=== PATIENT | female | born 1985 | race Caucasian/White ===

== ENCOUNTER 2024-04-02 12:26 | Outpatient (RCR) | payer MEDICAID, SELFPAY ==
--- NOTE | 2024-04-03 07:47 | HP.FCE ---
Task Lift Floor (Occasional 1-33% of Day): 15 Floor (Frequent 34-66% of Day): 7.5 Floor (Constant 67-100% of Day): 3.15 Floor PDL: Sedentary-Light Knee (Occasional 1-33% of Day): 15 Knee (Frequent 34-66% of Day): 7.5 Knee (Constant 67-100% of Day): 3.15 Knee PDL: Sedentary-Light Waist (Occasional 1-33% of Day): 20 Waist (Frequent 34-66% of Day): 10 Waist (Constant 67-100% of Day): 4.2 Waist PDL: Light Shoulder (Occasional 1-33% of Day): 15 Shoulder (Frequent 34-66% of Day): 7.5 Shoulder (Constant 67-100% of Day): 3.15 Shoulder PDL: Sedentary-Light Overhead (Occasional 1-33% of Day): 0 Overhead (Frequent 34-66% of Day): 0 Overhead (Constant 67-100% of Day): 0 Overhead PDL: No Ability Comments: pt functioning at sedentary light for floor, knee, as well as shoulder lift. pt functioning at light for waist lift. no ability for overhead lift. Work Activity/Posture Bending: Occasional Ability (1-33% of day) Squatting: Occasional Ability (1-33% of day) Kneeling: Occasional Ability (1-33% of day) Reaching out: Frequent Ability (34-66% of day) Reaching up: Occasional Ability (1-33% of day) Sitting: Frequent Ability (34-66% of day) Walking: Occasional Ability (1-33% of day) Standing: Occasional Ability (1-33% of day) Reference Reference: Duration Sedentary Sedentary Light Light Light Medium Medium Medium Heavy Very Heavy Heavy Occasional (0-33% of day) Frequent (34-66% of day) Constant (67-100% of day) 10 # Negligible Negligible 15 # 8 # Negligible 20 # 10# Negli. 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 Pt has undergone a bunch of PT for B ankles as well as shoulders. per pt aquatic therapy for shoulders as well. therapy for B wrist as well as back and hips. aquatic therapy for all of these as well. Pt has done massage to attempt to manage. pain management for lower back mid back and hip pain however has not been there in awhile. per pt has injections for bursa of legs and sacral region, RF on lower back reports RF helped a little bit. fibromyalgia specialist. pt does think she pulled B groin muscles back in 2006 however not formally dx. pt states recent dx of scoliosis this past month. pt reports having reactive airway disease unable to ID how long she has had it. 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 [place] is two stories 6 step landing then 6 steps. bedroom on upper level. pt has t/s combo reports she never showers by self boyfriend provides supervision no grab bars. per pt assists her with getting dressed and undressed -- pt reports she can do it if absolutely necessary however usually ends up hurting self when she attempts to. pt is able to go to bathroom on own. pt does cooking at home has boyfriend assist with carrying things too heavy or if needs stool to sit on. pt and her father do her laundry due to difficulty with carrying laundry up and down stairs. pt does have braces for ankle as well as wrist and back shoulder sling. pt reports wrist braces help the most Physical Examination Physical Examination: baseline bp taken sitting at desk before movement 110/71--- does take medication for bp issues baseline 02 and HR taken before physical movement: 02 100% HR 100 bpm pt request to sit in chair without arms changes sitting position frequently re adjustments during history intake ROM: BUE AROM WFL BLE AROM WFL reports pain in R hip with hip flexion reports pain in shoulder with shoulder flexion Strength: use of fet 2 peak force for strength numbers: Upper Extremity: L shoulder 7.9# R shoulder 9.2# L bicep 10.5# R bicep 8.2# L tricep 11.8# R tricep 11.9# L ER 10.6# R ER 10.7# Lower Extremity: L hip flexor: 14.4# R hip flexor 16# L quad 16.2# R quad 16.8# L hamstring 31.2# R hamstring 30.6# Right Electronic Scale Subassembler Strength Average: 45.00 Right Electronic Scale Subassembler Strength Percentile: 75th percentile Left Electronic Scale Subassembler Strength Average: 40.00 Left Electronic Scale Subassembler Strength Percentile: 62nd percentile Right Lateral Pinch Average: 2.33 Right Lateral Pinch Percentile: < 10th percentile Left Lateral Pinch Average: 1.66 Left Lateral Pinch Percentile: < 10th percentile Right Tripod Pinch Average: 1.33 Right Tripod Pinch Percentile: < 10th percentile Left Tripod Pinch Average: 0.66 Left Tripod Pinch Percentile: < 10th percentile Comments: re adjustments to hand inbetween due to pain hands shaky after completion Sensation: denies difficulty Fine Motor: 9 hole peg assessment: L hand Trial 1: 32 sec Trial 2: 29 sec Trial 3: 26 sec average= 29 sec pain in wrist after completion indicating pt in 0 percentile for age and gender R hand Trial 1: 22 sec Trial 2: 22 sec Trial 3: 23 sec average= 22.3 sec indicating pt in 10th percentile for age and gender Balance: standing forward reach assessment at 9 per pt easier in shoes she is wearing due to ankle support indicating pt is at moderate risk for falls single leg stance no shoes: L: 6 seconds R: 5 seconds Non Material Handling Activities Bending: bendin/3 trials at own pace 6/10 unable to complete and needs to sit for RB unable to complete HR 110 bpm 02 98% pain rating 6/10 per pt L ankle started giving out external support of desk Squatting: squattin/3 trial bp taken due to dizziness 119/74 at own pace 4/10 unable to continue unable to continue HR 112 bpm 02 100% pain rating 7/10 external support of desk Kneeling: kneelin/3 trials at own pace 4/10 has to stop unable to complete HR 112 bpm 02 98% pain rating 8/10 external support of desk hand shaking during task Reaching out/up: reaching out in standin/3 trial at own pace 10/10 fast 10/10 HR 116 bpm 02 99% reaching up in standin/3 trial at own pace 7/10 unable to continue HR 109 bpm 02 99% pain rating specifically shoulders 6/10 lower back 7.5/10 Walking: walks from waiting area to OT desk in back R corner of facility 195 feet total pt states that she does not think she could have gone any further Standing: pt stands for 6 min duration as longest stretch before needing seated RB during FCE. Sitting: per pt could sit for less than hour in desk chair set up; possibly longer in recliner chair with adjustments frequently pt sits for intake of assessment approx 30 min with frequent adjustments in chair without arm rests Climbing Stairs: typically will climb stairs at home (2) approx 2-5 x a day able to ascend and descend 10/10 steps uses B hand rails comes down facing forward however does rotate foot to L side to come down slow pace 02 100% HR 102 bpm Dynamic Occasional Lifting Capacity Floor Lift: floor Lift: box (15#) no additional weight overall 15# attempts to lift with 5# in it however unable to perform HR 125 bpm 02 99% becomes dizzy and holds onto counter for support Knee Lift: knee lift: box (15#) no additional weight overall lift 15# HR 127 bpm 02 100% pain rating wrist 6/10 R ankle 6/10 lower back 7/10 pushes off of box to stand back up Waist Lift: waist lift: Box(15#)+ 5#= total 20# HR 121 bpm 02 97% pain in lower back up to 8/10 pain denies dizziness requires seated RB in cross leg position Shoulder Lift: shoulder lift: box (15#)= total 15# unable to lift more slides box along other to get properly into position uses upper handle to place back down pain in shoulders R7.5/10 L 8/10 lower back 8/10 pt does report chest pain feeling sits down for RB pt HR down to 98-105 bpm and 02 95% or above during break Overhead Lift: overhead lift unable to lift box to position Carrying: carrying able to carry from desk surface to filing cabinet and nursing home back 42 feet stops carry due to wrist pain and cracking L wrist 9/10 R wrist 8.5/10 HR 100 bpm 02 97%
--- NOTE | 2024-07-03 14:13 | HP.OT.NRP ---
Patient Information Patient Information: PRASANTH SIERRA was seen in office for one time visit completion of FCE. discharge from caseload at this time Last Seen Last Seen: This patient was last seen in our office . Pertinent comments regarding their Occupational therapy will appear below: At this point I will be discontinuing this patient from occupational therapy. I would be happy to see this patient again in the future if found appropriate by the physician. Thank you! Ericka Travis
== END 2024-04-02 19:00 | disposition home or self-care (01) ==
LOC: OT 12:26
PROVIDERS: PCP Family Medicine
DX: M79.7 Fibromyalgia (principal); Q79.60 Ehlers-Danlos syndrome, unspecified
CPT/HCPCS: 97750